=== PATIENT | male | born 1975 | race Caucasian/White ===

== ENCOUNTER 2017-09-16 12:55 | Observation (INO) ==
[2017-09-16 13:31] VITALS: BMI 31.4
[2017-09-16] MEDS ORDERED: TYLENOL PO PRN (13:44)
[2017-09-16] MEDS ORDERED: DECADRON 4 MG/ML SDV IVP STA (13:45)
[2017-09-16] MEDS: ROCEPHIN 1 GM in SODIUM CHLORIDE 50 ML IV SCH (14:21)
[2017-09-16] MEDS: D5%-NS-KCL 20 MEQ/L IV SOL 1,000 ML IV SCH (14:21)
[2017-09-17] MEDS: D5%-NS-KCL 20 MEQ/L IV SOL 1,000 ML IV SCH ×2 (04:08→19:53)
[2017-09-17] MEDS: ROCEPHIN 1 GM in SODIUM CHLORIDE 50 ML IV SCH (09:17)
[2017-09-17] MEDS: ANTIVERT PO SCH ×2 (16:53→20:25)
[2017-09-17] MEDS ORDERED: DECADRON 4 MG/ML SDV IVP STA (17:35)
[2017-09-18] MEDS: ROCEPHIN 1 GM in SODIUM CHLORIDE 50 ML IV SCH (08:12)
[2017-09-18] MEDS: ANTIVERT PO SCH ×2 (09:53→16:16)
[2017-09-18] MEDS: D5%-NS-KCL 20 MEQ/L IV SOL 1,000 ML IV SCH (10:37)
[2017-09-18 13:51] VITALS: BP 123/82; TEMP 98
--- NOTE | 2017-09-18 15:30 | PCM.HOSP ---
- Observation Care Discharge [id number] OBS Care Discharge ([id number]): - Initial Observation Care [id number] High Complexity 70 Minutes (29449): 09/16 - Subsequent Observation Care [id number] 35 Minutes per Day (81649): 09/17
--- NOTE | 2017-09-19 13:51 | DS ---
DATE OF SERVICE: 09/18/17 FINAL DIAGNOSIS: 1. DIZZINESS 2. HEAT EXHAUSTION 3. ACUTE RENAL FAILURE 4. HYPERTENSION 5. DYSLIPIDEMIA 6. OBESITY 7. OSTEOARTHRITIS DISCHARGE INSTRUCTIONS: 1. Discharge the patient home. 2. Followup at the [facility] within three days on Tuesday. No work until seeing Dr. Macias in followup. MEDICATIONS AT DISCHARGE: Edarbi Diclofenac Fenofibrate Potassium Crestor NEW PRESCRIPTIONS: Meclizine 25 mg one tablet every 8 hours until finished Augmentin 500 mg q.8hr Prednisone 10 mg b.i.d. DIET INSTRUCTIONS: Cardiac and Healthy ACTIVITY: As much as tolerated DISEASE SPECIFIC EDUCATION: Dehydration and heat exhaustion has been discussed, verbalized understanding. HOSPITAL COURSE: This is a 42-year-old male who was recently evaluated in the emergency room at [facility] for severe dizziness and syncopal episode, found to have elevated BUN and creatinine, elevated white count of 14,[address] head was negative. They gave him fluids and let him go but the patient continued to feel the same way and was not able to get better. The patient did have some outpatient tests which included CT of the head showing microvascular changes. Carotid ultrasound was negative. As the patient was not feeling well, came to the office, given his age and recent abnormal blood work and continued dizziness, the patient was admitted to the hospital for IV hydration. BUN 24, creatinine 1.76 found to be in acute renal failure. IV fluids were started. On examination the patient also had right ear pain and right tympanic membrane rupture so started on antibiotic Rocephin 1 gm daily and steroids. With the given treatment, he was feeling some better. I added Meclizine 25 mg t.i.d. which helped the patient alot. The patient was up and about walking, started going out and smoking. He did not have any problems. Orthostatic hypotension was negative. As the patient was doing well, no complications during the hospital stay, he was discharged home. TIME SPENT: MORE THAN 65 MINUTES MTDD
--- NOTE | 2017-09-19 13:59 | PN ---
DATE OF SERVICE: 09/17/17 SUBJECTIVE: The patient was recently admitted to [facility] for heat exhaustion and dizziness. The patient was still dizzy, not able to take care of himself. He was started on IV fluids. BUN and creatinine still elevated 24 and 1.79 respectively. Hemoglobin dropped from 17.1 to 12.6. Urine negative. Drug screen negative. REVIEW OF SYSTEMS: CONSTITUTIONAL: No fever, no chills. HEENT: Normal. ENDOCRINE: No weight gain, no weight loss. CVS: No angina symptoms. No CHF symptoms. No palpitations. No atypical chest pain for CAD. No shortness of breath. No PND, no orthopnea. RESPIRATORY: No cough, no hemoptysis. GI: No nausea, no vomiting. No abdominal pain. : No hematuria. No polyuria. MUSCULOSKELETAL: No joint swelling. 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 PSYCHIATRIC: Not anxious. No depression. No suicidal thoughts. No homicidal thoughts. SKIN: Intact. No rash. PHYSICAL EXAMINATION: V/S: BP 109/70, respiratory rate 16, heart rate 84, temperature 97.5, saturation 96. HEENT: Normocephalic, atraumatic. Mucosa dry. Pallor positive. No icterus. NECK: Supple. No JVD, no carotid bruit. No lymphadenopathy. LUNGS: Clear to auscultation. No rales or rhonchi. HEART: S1, S2 normal. No S3. No murmur, gallop or regurgitation. ABDOMEN: Soft, nontender. Bowel sounds active. No rigidity. No rebound or guarding. No CVA tenderness. EXTREMITIES: No cyanosis, clubbing or pedal edema. MUSCULOSKELETAL: No joint swelling. NEUROLOGIC: Awake, alert. The patient does have dizzy spells. LYMPHATIC: No lymph nodes palpable. SKIN: Intact. LABS: White count 10.66, hemoglobin 12.7, hematocrit 37.9, platelet count 230. Sodium 139, potassium 4.1, chloride 106, bicarb 23, BUN 25, creatinine 1.18, glucose 117. ASSESSMENT: 1. STATUS POST HEAT EXHAUSTION 2. ACUTE RENAL FAILURE 3. DIZZINESS 4. ANEMIA PROBABLY FROM HEMODILUTION PLAN: 1. 1 cc Decadron 2. Rocephin 3. Right TM is ruptured so will treat for otitis media also. 4. Meclizine 5. Will continue to monitor the orthostatic hypotension on the patient. TIME SPENT: More than 35 minutes MTDD
== END 2017-09-18 16:32 | disposition home or self-care (01) ==
LOC: MEDSURG B 12:55
PROVIDERS: ADMIT Emergency Medicine; ATTEND Emergency Medicine
DX: R42 Dizziness and giddiness (principal); T67.5XXA Heat exhaustion, unspecified, initial encounter; I10 Essential (primary) hypertension; E78.5 Hyperlipidemia, unspecified; N17.9 Acute kidney failure, unspecified; D64.9 Anemia, unspecified
CPT/HCPCS: 36415; 80053; 80306; 81001; 82550; 84484; 85025; 93005; 93010

== ENCOUNTER 2017-10-04 11:12 | Outpatient (POV) | END 2017-10-04 17:00 | LOC: OUTPT 11:12 | PROVIDERS: ATTEND Otolaryngology | DX: H90.5 Unspecified sensorineural hearing loss (principal) ==

== ENCOUNTER 2017-10-30 10:04 | Emergency (ER) ==
[2017-10-30 10:11] VITALS: BP 135/82; TEMP 98.5; BMI 32.4
--- NOTE | 2017-10-30 10:54 | CT ---
EXAM: CT abdomen pelvis without contrast HISTORY: Rectal bleeding COMPARISON: None TECHNIQUE: Serial axial images of the abdomen pelvis were performed from the lung bases through the inferior pelvis without contrast. These were viewed in multiple planes. FINDINGS: There are innumerable pulmonary nodules in the lower lobes measuring up to 0.[address] The liver is unremarkable. The gallbladder is distended. Adrenal glands are normal. Urinary bladde r and kidneys are normal. The spleen is normal. The pancreas is normal. The stomach is normal. Small bowel in the abdomen pelvis is unremarkable. The appendix is normal. The colon demonstrates l ow attenuation in the mucosal wall that may represent history of prior infection/inflammation. Urina ry bladder is partially distended. The prostate is unremarkable. There is no free air, free fluid or lymphadenopathy. The osseous structures demonstrate no lytic or blastic lesion. IMPRESSION: 1. No acute abnormality in the abdomen pelvis to account for patient's rectal bleeding. 2. Innumerable small pulmonary nodules in the lung bases measuring up to 0.4 cm.
--- NOTE | 2017-10-30 11:11 | ED.PDOC ---
General ED Provider: Dr. ABHI RANDLE-ER Chief Complaint: GI Bleed Stated Complaint: im bleeding--rosaura seen dr haley before Time Seen by Physician: 10:10 Mode of Arrival: Walk-In Information Source: Patient, Family Exam Limitations: No limitations Primary Care Provider: ROSALIND LOPEZ Nursing and Triage Documentation Reviewed and Agree: Yes Does patient meet sepsis criteria?: No System Inflammatory Response Syndrome: Not Applicable Sepsis Protocol: For patient's 13 years and over: Temp is 96.8 and below OR 101 and greater Pulse >90 BPM Resp >20/minute Acutely Altered Mental Status Are patient's symptoms suggestive of a new infection, such as: -Pneumonia -Skin, Soft Tissue -Endocarditis -UTI -Bone, Joint Infection -Implantable Device -Acute Abdominal Infection -Wound Infection -Meningitis -Blood Stream Catheter Infection -Unknown GI Complaint Exam - GI Bleed Complaint/Exam Patient Complains of: Reports: Rectal bleeding Onset/Duration: this am Symptoms Are: Still present Frequency: once Severity: Reports: Bright red blood-rectum Location of Pain: Reports: None Character: Reports: Sharp Aggravating: Reports: None Alleviating: Reports: None Associated Signs and Symptoms: Reports: Weakness Related History: Reports: Similar episode GI Bleed Risk Factors: Reports: None Recent Colonoscopy: No Recent EGD: No Abdominal Findings: Present: None Differential Diagnoses: Hemorrhoids, Ulcerative Colitis Review of Systems - Review Of Systems Constitutional: Reports: No symptoms Eyes: Reports: No symptoms Ears, Nose, Mouth, Throat: Reports: No symptoms Respiratory: Reports: No symptoms Cardiac: Reports: No symptoms GI: Reports: No symptoms : Reports: No symptoms Musculoskeletal: Reports: No symptoms, Muscle pain Skin: Reports: No symptoms Neurological: Reports: No symptoms Endocrine: Reports: No symptoms Hematologic/Lymphatic: Reports: No symptoms All Other Systems: Reviewed and Negative Past Medical History - Past Medical History Previously Healthy: No Endocrine: Reports: Unknown Cardiovascular: Reports: Unknown Respiratory: Reports: Unknown Hematological: Reports: Unknown Gastrointestinal: Reports: Unknown Genitourinary: Reports: Unknown Neuro/Psych: Reports: Unknown Musculoskeletal: Reports: Unknown Cancer: Reports: Unknown - Surgical History General Surgical History: Reports: Unknown - Family History Family History: Reports: Unknown - Social History Smoking Status: Current every day smoker, Heavy tobacco smoker Alcohol Screening: Occasionally Physical Exam - Physical Exam Appearance: Well-appearing, No pain distress, Well-nourished Eyes: ALEIDA, EOMI, Conjunctiva clear ENT: Ears normal, Nose normal, Oropharynx normal Neck: Supple Respiratory: Airway patent, Breath sounds clear, Breath sounds equal, Respirations nonlabored Cardiovascular: RRR, Pulses normal, No rub, No murmur GI/: Soft, Nontender, No masses, Bowel sounds normal, No Organomegaly Musculoskeletal: Normal strength Skin: Warm, Dry, Normal color Neurological: Sensation intact, Motor intact, Reflexes intact, Cranial nerves intact, Alert, Oriented Psychiatric: Affect appropriate, Mood appropriate Interpretation - Radiology Interpretation Radiology Interpretation By: Radiologist Radiology Results: Negative Exam Interpreted: CT Scan Critical Care Note - Critical Care Note Total Time (mins): 0 Course - Course Hematology/Chemistry: 10/30/17 10:30 10/30/17 10:30 Orders, Labs, Meds: Lab Review 10/30/17 10/30/17 10/30/17 10:30 10:30 10:30 WBC 5.12 RBC 4.06 L Hgb 12.5 L Hct 37.7 L MCV 92.9 MCH 30.8 MCHC 33.2 RDW Coeff of Jaime 12.1 Plt Count 220 Immature Gran % (Auto) 0.8 Neut % (Auto) 63.6 Lymph % (Auto) 21.9 Wayne % (Auto) 7.6 Eos % (Auto) 5.1 Baso % (Auto) 1.0 Immature Gran # (Auto) 0.0 Neut # (Auto) 3.3 Lymph # (Auto) 1.1 Wayne # (Auto) 0.4 Eos # (Auto) 0.3 Baso # (Auto) 0.1 PT 11.0 INR 1.10 Sodium 138 Potassium 4.3 Chloride 107 Carbon Dioxide 21 L Anion Gap 14.3 BUN 28 H Creatinine 1.42 H Estimated GFR (MDRD) 55.00 BUN/Creatinine Ratio 19.71 Glucose 134 H Calcium 9.8 Total Bilirubin 0.3 AST 32 ALT 34 Alkaline Phosphatase 39 Total Protein 7.7 Albumin 4.4 Globulin 3.3 Albumin/Globulin Ratio 1.33 Orders Category Date Time Status CBC W/ AUTO DIFF Stat LAB 10/30/17 10:30 Completed COMPREHENSIVE METABOLIC PANEL Stat LAB 10/30/17 10:30 Completed PT WITH INR Stat LAB 10/30/17 10:[address] ABDOMEN/PELVIS WO CONTRAST Stat RADS 10/30/17 10:22 Completed Vital Signs: Temp Pulse Resp BP Pulse Ox 10/30/17 10:05 98.5 F 92 H 20 135/82 96 Departure - Departure Time of Disposition: 11:12 Disposition: TSF SHORT-TRM HOSP Discharge Problem: Gastrointestinal hemorrhage Instructions: Rectal Bleeding (ED) Condition: Good Pt referred to PMD for follow-up: Yes IPMP verified?: No Allergies/Adverse Reactions: Allergies No Known Allergies Allergy (Verified 10/30/17 10:13) Home Medications: Ambulatory Orders Azilsartan Medoxomil [Edarbi] 40 mg PO DAILY 09/16/17 Diclofenac Sodium 75 mg PO BID 09/16/17 Fenofibrate Nanocrystallized [Fenofibrate] 145 mg PO DAILY 09/16/17 Potassium 99 mg PO DAILY 09/16/17 Rosuvastatin Calcium [Crestor] 20 mg PO DAILY 09/16/17 Prednisone 10 mg PO BIDWM #10 tab.ds.pk 09/18/17 Nortriptyline HCl 25 mg PO BEDTIME 10/06/17 Hydroxychloroquine Sulfate [Plaquenil] 400 mg PO DAILY 10/30/17 Sildenafil Citrate [Viagra] 100 mg PO DAILY 10/30/17 Transfer Form Completed: Yes Disposition Discussed With: Patient, Family
[2017-10-30] MEDS ORDERED: SODIUM CHLORIDE 1,000 ML IV STA (11:15)
== END 2017-10-30 12:54 | disposition short-term general hospital (02) ==
LOC: ED 10:04
DX: K92.1 Melena (principal); F17.210 Nicotine dependence, cigarettes, uncomplicated; Z79.899 Other long term (current) drug therapy
CPT/HCPCS: 36415; 80053; 85025; 85610; 96360; 99285

== ENCOUNTER 2017-12-27 13:50 | Outpatient (CLI) | END 2017-12-27 13:51 | disposition home or self-care (01) | LOC: LAB 13:50 | PROVIDERS: ATTEND Internal Medicine Rheumatology | DX: M06.4 Inflammatory polyarthropathy (principal); R53.83 Other fatigue | CPT/HCPCS: 36415; 80053; 80074; 85025; 85651; 86140; 86200 ==

== ENCOUNTER 2018-04-01 11:44 | Emergency (ER) ==
[2018-04-01 11:53] VITALS: BP 121/81; TEMP 99.3; BMI 31.2
--- NOTE | 2018-04-01 12:27 | ED.PDOC ---
General ED Provider: Dr. ABHI BERNARDO Chief Complaint: Respiratory Complaint Stated Complaint: CC: Cough and congestion. Has Coughing and congestion which has not regressed despite taking Zithromax. Actually feels worse. Saw providere at clinic 3 days and Tested negative for flu at office .Chest hurts to cough, body aches. Has Fever. Cough productive white to yellow sputum. Nasal congestion. Negative for flu. Given Z-pack 03/30. Not helping. Has been taking ibuprofen 6 times per day. No tylenol taken. State normally gets befefit from [facility]. Time Seen by Physician: 11:55 Mode of Arrival: Walk-In Information Source: Patient Exam Limitations: No limitations Primary Care Provider: BROOKE MOODY Nursing and Triage Documentation Reviewed and Agree: Yes Does patient meet sepsis criteria?: No If yes, has appropriate treatment been initiated?: No System Inflammatory Response Syndrome: Not Applicable Sepsis Protocol: For patient's 13 years and over: Temp is 96.8 and below OR 101 and greater Pulse >90 BPM Resp >20/minute Acutely Altered Mental Status Are patient's symptoms suggestive of a new infection, such as: -Pneumonia -Skin, Soft Tissue -Endocarditis -UTI -Bone, Joint Infection -Implantable Device -Acute Abdominal Infection -Wound Infection -Meningitis -Blood Stream Catheter Infection -Unknown Respiratory Complaint Exam - Respiratory Complaint/Exam Onset/Duration: 1 weeks Symptoms Are: Still present Timing: Constant Initial Severity: Moderate Current Severity: Moderate Location: Nose, Throat, Chest Character: Reports: Productive cough, Bronchospastic cough Aggravating: Reports: URI, Passive smoke exposure, Deep breaths Alleviating: Reports: None Associated Signs and Symptoms: Reports: URI, Nasal congestion. Denies: Rapid breathing, Dyspnea, Fever, Chills, Chest pain, Pleuritic chest pain, Wheezing, Hemoptysis, Dizziness, Calf pain, Calf swelling, Edema, Hoarseness, Sinus discomfort, Vomiting, Sore throat, Weight loss, Decreased oral intake, Increased thirst, Increased appetite, Increased urination Related History: Reports: Similar episode History of Healthcare-Acquired Pneumonia: No Related Surgical History: Reports: None Pulmonary Embolism Risk Factors: None Cardiac Risk Factors: Reports: None Pseudomonas Risk Factors: Reports: None Tuberculosis Risk Factors: Reports: None Status Asthmaticus Risk Factors: Reports: None Home Oxygen Use: No Recent Stress Test: Yes Recent Echo/LV Function: No Current Antibiotic Use: No Respiratory Distress: None Inadequate Respiratory Effort: No Dysphagia Present: No Stridor Present: No JVD Present: No Retractions: Not Present Diminished Breath Sounds: Yes Sinus Tenderness: Frontal, Maxillary Grunting Respirations: No Kussmaul Respirations: No Differential Diagnoses: COPD Exacerbation, Bronchospasm, URI Quality Indicators For Pneumonia: SpO2 assessed, Empiric Antibiotic Rx, Vital signs, Mental status assessed Review of Systems - Review Of Systems Constitutional: Reports: No symptoms, Malaise Eyes: Reports: No symptoms Ears, Nose, Mouth, Throat: Reports: No symptoms Respiratory: Reports: Cough Cardiac: Reports: No symptoms GI: Reports: No symptoms : Reports: No symptoms Musculoskeletal: Reports: No symptoms Skin: Reports: No symptoms Neurological: Reports: No symptoms Endocrine: Reports: No symptoms Hematologic/Lymphatic: Reports: No symptoms All Other Systems: Reviewed and Negative Past Medical History - Past Medical History Previously Healthy: No Endocrine: Reports: Unknown Cardiovascular: Reports: Unknown Respiratory: Reports: Unknown Hematological: Reports: Unknown Gastrointestinal: Reports: Unknown Genitourinary: Reports: Unknown Neuro/Psych: Reports: Unknown Musculoskeletal: Reports: Unknown Cancer: Reports: Unknown - Surgical History General Surgical History: Reports: Unknown - Family History Family History: Reports: Unknown - Social History Smoking Status: Current every day smoker, Heavy tobacco smoker Hx Substance Use: No Alcohol Screening: Occasionally Physical Exam - Physical Exam Appearance: Ill-appearing Ill-appearing: None Pain Distress: None Eyes: ALEIDA, EOMI, Conjunctiva clear ENT: Ears normal, Nose normal, Oropharynx normal Neck: Supple Respiratory: Airway patent, Breath sounds clear, Breath sounds equal, Respirations nonlabored Cardiovascular: RRR, Pulses normal, No rub, No murmur GI/: Soft Musculoskeletal: Normal strength, ROM intact, No edema, No calf tenderness Skin: Warm, Dry, Normal color Neurological: Sensation intact, Motor intact, Reflexes intact, Cranial nerves intact, Alert, Oriented Psychiatric: Affect appropriate, Mood appropriate Critical Care Note - Critical Care Note Total Time (mins): 0 Course - Course Hematology/Chemistry: 04/01/18 12:30 04/01/18 12:30 Orders, Labs, Meds: Lab Review 04/01/18 04/01/18 04/01/18 12:30 12:30 12:40 WBC 4.56 RBC 4.59 L Hgb 14.1 Hct 42.5 MCV 92.6 MCH 30.7 MCHC 33.2 RDW Coeff of Jaime 12.3 Plt Count 198 Immature Gran % (Auto) 0.2 Neut % (Auto) 65.5 Lymph % (Auto) 15.8 [place] % (Auto) 14.3 H Eos % (Auto) 3.3 Baso % (Auto) 0.9 Immature Gran # (Auto) 0.0 Neut # (Auto) 3.0 Lymph # (Auto) 0.7 [place] # (Auto) 0.7 Eos # (Auto) 0.2 Baso # (Auto) 0.0 Sodium 141.3 Potassium 4.16 Chloride 107.3 H Carbon Dioxide 24.1 Anion Gap 14.06 BUN 18.5 Creatinine 1.13 H Estimated GFR (MDRD) 71.00 BUN/Creatinine Ratio 16.37 Glucose 90.3 Calcium 9.35 Total Bilirubin 0.25 AST 30.8 ALT 38.7 Alkaline Phosphatase 43.5 Total Protein 7.38 Albumin 4.33 Globulin 3.05 Albumin/Globulin Ratio 1.41 Urine Color Urine Clarity Urine pH Ur Specific [place] Urine Protein Urine Glucose (UA) Urine Ketones Urine Blood Urine Nitrite Urine Bilirubin Urine Urobilinogen Ur Leukocyte Esterase Urine Opiates Screen Ur Oxycodone Screen Urine Methadone Screen Ur Propoxyphene Screen Ur Barbiturates Screen U Tricyclic Antidepress Ur Phencyclidine Scrn Ur Amphetamine Screen U Methamphetamines Scrn U Benzodiazepines Scrn Urine Cocaine Screen U Cannabinoids Screen Influ A Molecular Assay Negative by naat Influ B Molecular Assay Negative by naat RSV Antigen 04/01/18 04/01/18 04/01/18 12:40 13:28 13:28 WBC RBC Hgb Hct MCV MCH MCHC RDW Coeff of Jaime Plt Count Immature Gran % (Auto) Neut % (Auto) Lymph % (Auto) [place] % (Auto) Eos % (Auto) Baso % (Auto) Immature Gran # (Auto) Neut # (Auto) Lymph # (Auto) [place] # (Auto) Eos # (Auto) Baso # (Auto) Sodium Potassium Chloride Carbon Dioxide Anion Gap BUN Creatinine Estimated GFR (MDRD) BUN/Creatinine Ratio Glucose Calcium Total Bilirubin AST ALT Alkaline Phosphatase Total Protein Albumin Globulin Albumin/Globulin Ratio Urine Color Yellow Urine Clarity Clear Urine pH 6.5 Ur Specific [place] >=1.030 Urine Protein Negative Urine Glucose (UA) Negative Urine Ketones Negative Urine Blood Negative Urine Nitrite Negative Urine Bilirubin Negative Urine Urobilinogen 0.2 Ur Leukocyte Esterase Negative Urine Opiates Screen Negative Ur Oxycodone Screen Negative Urine Methadone Screen Negative Ur Propoxyphene Screen Negative Ur Barbiturates Screen Negative U Tricyclic Antidepress Positive Ur Phencyclidine Scrn Negative Ur Amphetamine Screen Negative U Methamphetamines Scrn Negative U Benzodiazepines Scrn Negative Urine Cocaine Screen Negative U Cannabinoids Screen Negative Influ A Molecular Assay Influ B Molecular Assay RSV Antigen Negative by naat Orders Category Date Time Status CBC W/ AUTO DIFF Stat LAB 04/01/18 12:30 Completed CMP [COMPREHENSIVE METABOLIC PANEL] Stat LAB 04/01/18 12:30 Completed FLU A & B MOLECULAR [FLU A/B MOLECULAR] Stat LAB 04/01/18 12:40 Completed RAPID STREP SCREEN [MOLECULAR GROUP A STREP] Stat LAB 04/01/18 12:40 Completed RSV Stat LAB 04/01/18 12:40 Completed SPUTUM CULTURE Stat LAB 04/01/18 13:09 Received UA [URINALYSIS C & S IF INDICATED] Stat LAB 04/01/18 13:28 Completed URINE DRUG SCREEN (RAPID FOR ED) [DRUG SCREEN, URINE, LAB 04/01/18 13:28 Completed RAPID] Stat CHEST, 2 VIEWS PA & LAT Stat RADS 04/01/18 12:26 Completed Vital Signs: Temp Pulse Resp BP Pulse Ox 04/01/18 11:44 99.3 F 121 H 20 121/81 92 L Departure - Departure Time of Disposition: 14:00 Disposition: HOME SELF-CARE Discharge Problem: URI (upper respiratory infection) Instructions: Upper Respiratory Infection (ED) Condition: Good Pt referred to PMD for follow-up: Yes IPMP verified?: No Additional Instructions: Consume adequate oral fluids Take meds as directed See PCP in 1 week Take Robitussin DM for coughing as needed, Finish taking zithromax Begin Augumentin and Medrol Dose Pack Prescriptions: Amoxicillin/Potassium Clav [Augmentin 875-125 Tablet] 1 each PO BID #20 tablet Methylprednisolone [Medrol Dosepak] 4 mg PO DIRECTED #1 tab.ds.pk Allergies/Adverse Reactions: Allergies No Known Allergies Allergy (Verified 04/01/18 11:53) Home Medications: Ambulatory Orders Diclofenac Sodium 75 mg PO BID 09/16/17 Fenofibrate Nanocrystallized [Fenofibrate] 145 mg PO DAILY 09/16/17 Potassium 99 mg PO DAILY 09/16/17 Rosuvastatin Calcium [Crestor] 20 mg PO DAILY 09/16/17 Nortriptyline HCl 25 mg PO BEDTIME 10/06/17 Hydroxychloroquine Sulfate [Plaquenil] 400 mg PO DAILY 10/30/17 Lansoprazole [Prevacid] 30 mg PO DAILY 11/09/17 Amoxicillin/Potassium Clav [Augmentin 875-125 Tablet] 1 each PO BID #20 tablet 04/01/18 Methylprednisolone [Medrol Dosepak] 4 mg PO DIRECTED #1 tab.ds.pk 04/01/18 Disposition Discussed With: Patient, Family
--- NOTE | 2018-04-01 13:50 | DI ---
EXAM: PA and lateral views of the chest HISTORY: Cough and congestion COMPARISON: CT chest 01/24/2018 FINDINGS: The cardiomediastinal silhouette is normal. There is no pneumothorax or pleural effusion. There is no consolidation or mass. Bilateral innumerable pulmonary nodules are unchanged. The oss eous structures are unremarkable. IMPRESSION: No acute cardiopulmonary process with innumerable stable pulmonary nodules.
== END 2018-04-01 14:28 | disposition home or self-care (01) ==
LOC: ED 11:44
DX: J06.9 Acute upper respiratory infection, unspecified (principal); F17.210 Nicotine dependence, cigarettes, uncomplicated
CPT/HCPCS: 36415; 80053; 80306; 81001; 85025; 87070; 87502; 87651; 87801; 99283

== ENCOUNTER 2018-04-05 09:56 | Outpatient (CLI) ==
--- NOTE | 2018-04-05 10:19 | DI ---
EXAM: Two views of the chest. History: Chronic obstructive pulmonary disease Comparison: Chest radiograph 04/01/2018, chest CT 01/24/2018 Findings: Heart size is within normal limits. No focal consolidation. No appreciable pleural fluid and no pneumothorax. No significant interval change in the innumerable sub-centimeter bilateral surendra g nodules. No acute osseous abnormalities. Impression: 1. No consolidated pneumonia. 2. No significant interval change in the innumerable bilateral pulmonary nodules.
== END 2018-04-05 09:57 | disposition home or self-care (01) ==
LOC: RAD 09:56
PROVIDERS: ATTEND Internal Medicine
DX: R06.02 Shortness of breath (principal); I10 Essential (primary) hypertension; J44.9 Chronic obstructive pulmonary disease, unspecified

== ENCOUNTER 2018-04-12 12:39 | Outpatient (CLI) | END 2018-04-12 12:40 | disposition home or self-care (01) | LOC: CAR 12:39 | PROVIDERS: ATTEND Internal Medicine | DX: R06.02 Shortness of breath (principal); J44.9 Chronic obstructive pulmonary disease, unspecified; I10 Essential (primary) hypertension; R00.0 Tachycardia, unspecified; E78.5 Hyperlipidemia, unspecified; Z87.19 Personal history of other diseases of the digestive system | CPT/HCPCS: 36415; 80053; 80061; 85025; 93005; 93010 ==

== ENCOUNTER 2018-04-14 06:36 | Outpatient (CLI) ==
--- NOTE | 2018-04-14 10:09 | ECHO2D ---
Date of Exam: 04/14/18 Ordering Physician: DR. JESSICA CHAVARRIA Room #: OP Reason for Echo: SOB, HTN, COPD M-Mode Normal Adult Results LV Dimensions Normal Adult Results AoV Opening excursions >1.6 >1.6 LVEDD-base- 3.5-5.8 5.3 Ao root dimensions 2.0-3.7 3.5 LVESD-base- 3.1-4.6 L. Atrium dimensions 1.9-3.8 4.1 Post. Wall thickness 0.8-1.1 1.1 IV septum (thickness) 0.7-1.2 1.1 Post. Wall excursion 0.72-1.3 NORMAL Septal motion 0.7 Systolic motion R. Ventricular cavity 1.5-2.0 NORMAL LVEF 60% 45% Paradoxical septal wall motion NORMAL 2-D : MILDLY HYPOKINETIC SEPTUM--NORMAL VALVES--NO EFFUSION, NO THROMBUS, MILDLY ENLARGED LEFT ATRIAL CAVITY, NORMAL LEFT VENTRICLE SIZE M-MODE: MV: NORMAL AV: NORMAL TV: NORMAL PV: CHAMBER SIZE: MILDLY ENLARGED LEFT ATRIAL CAVITY SIZE WALL MOTION: NORMAL PERICARDIUM: NORMAL INTERPRETATION: 1. BORDERLINE LEFT VENTRICULAR HYPERTROPHY 2. MILDLY ENLARGED LEFT ATRIAL CAVITY 3. MILDLY HYPOKINETIC SEPTUM--LEFT VENTRICULAR EJECTION FRACTION 45% 4. NORMAL VALVES MTDD
== END 2018-04-14 06:37 | disposition home or self-care (01) ==
LOC: CAR 06:36
PROVIDERS: ATTEND Internal Medicine
DX: R06.02 Shortness of breath (principal); I10 Essential (primary) hypertension; J44.9 Chronic obstructive pulmonary disease, unspecified

== ENCOUNTER 2018-04-17 06:41 | Outpatient (CLI) ==
--- NOTE | 2018-04-17 09:41 | STRESSECHO ---
Date of Test: 04/17/18 Ordering Physician: DR. JESSICA CHAVARRIA/BROOKE MOODY NP Occupation: UNEMPLOYED Reason for Exam: SOB, HTN, COPD Smoking History: 30 PK YRS Height: 71" Weight: 225 LBS Current Medications: DICLOFENAC, FENOFIBRATE, FLUTICASONE, HYDROXYCHLOROQUINE, LANSOPRAZOLE, LISINOPRIL, NORTRIPTYLINE, ROSUVASTATIN, SULFASALAZINE, SYMBICORT , VENTOLIN, VIAGRA, COREG, LOSARTAN Resting EKG: SINUS RHYTHM/ LEFT VENTRICULAR HYPERTROPHY Target Heart Rate: 150/177 S-T SEGMENT STAGE MPH/GRADE HEART RATE BPM BLOOD PRESSURE MMHG RHYTHM +/- ELEVATION DEPRESSION SYMPTOMS AT REST 75 BPM 120/90 MMHG SR X NONE 1 1.7/10% 120 BPM 136/70 MMHG SR X NONE 2 2.5/12% 132 BPM 134/72 MMHG SR X NONE 3 3.4/14% 4 4.2/16% 5 5.0/18% Immediately After 142 BPM SR X NONE Minutes Post Exercise 4:00 88 BPM 126/88 MMHG SR X SHORT OF AIR Minutes Post Exercise DURATION OF EXERCISE: 6:40 MAXIMUM HEART RATE REACHED: 146 BPM REASON FOR TERMINATION: SHORT OF AIR 98% OXYGEN SATURATION ON ROOM AIR WITH EXERCISE METS: 9.0 INTERPRETATION: 1. NO EVIDENCE OF ISCHEMIA BY ST-T WAVE 2. NO CHEST PAIN OR CHEST DISCOMFORT 3. BLOOD PRESSURE RESPONSE: NORMAL AT REST AND WITH EXERCISE 4. NO ARRHYTHMIAS NORMAL LEFT VENTRICULAR CONTRACTILITY--RESTING AND POST EXERCISE MTDD
--- NOTE | 2018-04-17 09:46 | ECHOSTRESS ---
Date of Exam: 04/17/18 Ordering Physician: DR. JESSICA CHAVARRIA/ BROOKE MOODY NP Reason for Echo: SOB, HTN, COPD, STRESS TEST--NO ISCHEMIA M-Mode Normal Adult Results LV Dimensions Normal Adult Results AoV Opening excursions >1.6 LVEDD-base- 3.5-5.8 Ao root dimensions 2.0-3.7 LVESD-base- 3.1-4.6 L. Atrium dimensions 1.9-3.8 Post. Wall thickness 0.8-1.1 IV septum (thickness) 0.7-1.2 Post. Wall excursion 0.72-1.3 Septal motion Systolic motion R. Ventricular cavity 1.5-2.0 LVEF 60% Paradoxical septal wall motion 2-D: NORMAL LEFT VENTRICULAR CONTRACTILITY--RESTING AND POST EXERCISE M-MODE: MV: AV: TV: PV: CHAMBER SIZE: WALL MOTION: NORMAL LEFT VENTRICULAR CONTRACTILITY--RESTING AND POST EXERCISE PERICARDIUM: INTERPRETATION: 1. NORMAL LEFT VENTRICULAR CONTRACTILITY--RESTING AND POST EXERCISE MTDD
== END 2018-04-17 06:42 | disposition home or self-care (01) ==
LOC: CAR 06:41
PROVIDERS: ATTEND Internal Medicine
DX: R06.02 Shortness of breath (principal); I10 Essential (primary) hypertension; J44.9 Chronic obstructive pulmonary disease, unspecified

== ENCOUNTER 2018-05-31 07:53 | Outpatient (CLI) ==
--- NOTE | 2018-05-31 12:34 | NM ---
Exam: Bone scintigraphy (whole-body). Date of exam: 05/31/2018 Radiopharmaceutical: 25.5 mCi Tc-99m HDP i.v. Reason for exam: Joint and low back pain. Worsened right hip FINDINGS: Delayed whole-body scintigrams were obtained. No previous bone scan is available for josé cartwright. The scintigraphic images were correlated with the following additional imaging studies: CT of the [facility] performed 01/24/2018. CT abdomen pelvis performed 10/30/2017. X-ray right hip performed 03/20/19 19. Focal area of increased uptake is seen in the right posterior ninth rib. There are focal areas of de generative appearing uptake in the the left and right shoulders, sternoclavicular joints, left head mechanic ior cervical facets, and left knee. Impression: 1. Focal radiopharmaceutical uptake in the right posterior ninth rib is likely traumatic. If clinic al concern exists, further imaging could be performed. 2. Radiopharmaceutical uptake is seen in the shoulders, cervical spine, left knee, and sternoclavicu lar joints likely degenerative.
== END 2018-05-31 07:54 | disposition home or self-care (01) ==
LOC: RAD 07:53
PROVIDERS: ATTEND Orthopaedic Surgery
DX: M25.551 Pain in right hip (principal); M54.5 Low back pain

== ENCOUNTER 2018-06-19 08:00 | Outpatient (RCR) ==
--- NOTE | 2018-06-13 12:03 | RS.OPPTEV2 ---
Date of Note: 06/12/18 Visit #: 1 Number of visits approved by Insurance: pending Date of Evaluation: 06/12/18 Payer Source: Medicaid Date of Procedure: 06/12/18 Treatment Diagnosis: Low back and bilateral hip pain History of Condition/Mechanism of Injury:: Patient states he has had problems for years. Pain began to significantly increased last summer without any known reason or injury. 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 He has been unable to work since August 2017. States he has not had therapy on his back and he has not been to Pain Management. Prior Level of Function.....Patient was independent with: ADL's, Self Care, Caregiving, Ambulation/Mobility, Community Integration/Access Functional Limitations: Sleep, ADL's, Reaching, Pushing, Pulling, Lifting, Carrying, Sitting, Standing, Bending, Squatting, Ambulation, Community Access/ Integration Current Subjective/complaints:: Mr. Mejía reports currently more low back pain and right hip pain. He frequently gets pain down to the foot on the right LE. States he gets tingling in his hands, but denies any tingling or numbness in the LE's. Also denies weakness in the LE's. Reports he cannot tolerate prolonged standing and walking. States he has moved his wallet to the left pocket, because it hurt more when sitting with it in the right pocket. His has had surgery and he is having to do more around the house, but it is difficult for him due to his pain. States he has to change positions frequently. His sleep is very difficult due to having to change positions. States the Vicoprofen does not help much and he feels that he needs something stronger. States he did not take anything this morning so we could see how his pain is. Medical History Medical History: Hypertension, COPD, Arthritis (knees, hips, shoulders, hands) Surgical History Comments:: shoulder, knee, eye surgery Hx Home Medications: Vicoprofen Patient's Goals: His goal is to get some relief of low back and hip pain. Pain Assessment - Pain Description Pain Location: low back and right hip Current Pain Intensity: not quantified Worst Pain Intensity: not quantified Functional Outcome Measure Oswestry LBP: 84 LE Functional Scale: 17 (=78.75% impairment) - G Codes & Severity Modifier G Codes & Modifier: NA Source of G Code score: NA Observation - Observation Inspection: Patient presents sitting in chair with weight on his left buttock and right hip shifted forward with right LE extended. He changes to his right hip for a short time and then back to his left. Posture: Forward Head, Decreased Lumbar Lordosis Gait - Gait Pattern Gait Comments: Patient ambulates without an assistive device. Ambulates with slight forward posture with slow, cautious gait. Ambulates with decreased stance on the right LE. - ROM Lumbar Flexion: Hand reach to patellae Sidebending to Left: Reach to Lateral Joint Line Sidebending to Right: Reach to Mid-thigh Lumbar Spine ROM Limitations: Pain Comments: Patient reports increased pain into the right lumbosacral and buttock region with lumbar flexion, extension, and right sidebending. States left sidebending actually seems to relieve it some. In supine, lower trunk rotation to his left feels better than to his right. Bilateral hip pain beyond 85-90 degrees flexion causes increased right hip/low back pain. Reports increased pain with combined right hip flexion and adduction. - Strength Trunk Rotation: 4 Good Comments: Right hip strength 4/5 with reports of pain with MMT of flexion and abduction. Right knee 4+/5, with significant increased pain reported when etta the right HS. Right ankle 4+/5. Left LE generally 4+/5 throughout. - Special Tests OMAR Test: Negative Left SLR Test: Negative Left, Positive Right Seated Dural Stretch Test: Negative Left, Positive Right SI Joint Compression: Negative Comments: Does not tolerate the ROM in the right hip to perform OMAR. Palpation Comments:: Moderate muscle tone along the lumbar paraspinals. Denies tenderness to the lumbar paraspinals or with Central PA's to the lumbar vertebrae. Does reports mild tenderness with palpation around the Right SI joint and superior to middle buttock region. Denies pain with anterior force to the sacrum. Sensation - Sensation Right Lower Extremity: Intact/Normal Left Lower Extremity: Intact/Normal Additional Comments: Additional Comments: Supine SLR: left 35-40 degrees, right with pain and guarding at 30 degrees. Left LE appears shorter in supine, but patient does not assist with laying in straight alignment to determine leg length discrepancy. Interventions - Exercise/Activities/Manual Therapy Exercises/Activities: None given today Manual Therapy: NA - Charges Timed Code Treatment Minutes: 0 mins Total Treatment Time: 48 mins Procedures billed for this date of service:: EVAL medium EVALUATION COMPLEXITY LEVEL EVALUATION COMPLEXITY LEVEL: HISTORY: Medium (Hx of back pain), EXAM OF BODY SYSTEMS: Medium (ROM, MS, mobility, gait,palpation,sensation), CLINICAL PRESENTATION: Medium (high pain rating, low functional rating), CLINICAL DECISION MAKING: Medium Assessment Assessment: Patient presents to therapy with a diagnosis of bilateral hip and low back pain. He reports pain is more in the right hip. States he cannot tolerate any position for too long due to pain. States he has to frequently change positions to try to get comfortable. During evaluation, all lumbar AROM reproduces pain, except for left SB and left lower trunk rotation , which relieves a little. He exhibits a high pain profile and Special tests may not be valid due to pain with most movements or positions. He may benefit from therapy to reduce pain and improve his mobility. Patient Education: Education of diagnosis, Body/Joint mechanics, Education of Plan of Care Rehab Potential: Good Short Term Goals Goal #1: Patient independent and compliant with HEP. Goal to be met by: 06/27/18 Goal #2: Patient able to tolerate 15 mins of exercises in department. Goal to be met by: 06/27/18 Goal #3: Muscle tone in lumbar paraspinals decreased to minimal Goal to be met by: 06/27/18 Goal #4: Pt to maintain normal resting sitting posture for 10 mins in department. Goal to be met by: 06/27/18 [facility] Goals Goal #1: Pt knows HEP and to continue ex's to maintain functional level at D/C. Goal to be met by: 07/28/18 Goal #2: Score on Oswestry LBP scale improved to 54. Goal to be met by: 07/28/18 Goal #3: Pt able to amb. community distances with min. back pain & min. gt dev. Goal to be met by: 07/28/18 Goal #4: Lumbar AROM WFL's to perform ADL's with minimal to no difficulty. Goal to be met by: 07/28/18 Plan - Treatment to be Provided Procedures: Therapeutic Exercises, Therapeutic Activity, Manual Therapy, Patient Education Modalities: Electrical Stimulation, Ultrasound/Phonophoresis, Cryotherapy, Hot Packs Other:: Modalities to help him tolerate stretching/ROM. - Treatment Plan Frequency: 2-3 X week Duration: 6 weeks Dates of [facility] Goals: 07/28/18 Expiration date of current Insurance Approval:: pending - Treatment Code (1) Low back pain Code(s): M54.5 - LOW BACK PAIN Qualifiers: Chronicity: unspecified Back pain laterality: unspecified Sciatica presence: unspecified whether sciatica present Qualified Code(s): M54.5 - Low back pain (2) Hip pain Code(s): M25.559 - PAIN IN UNSPECIFIED HIP Qualifiers: Laterality: right Qualified Code(s): M25.551 - Pain in right hip (3) Gait abnormality Code(s): R26.9 - UNSPECIFIED ABNORMALITIES OF GAIT AND MOBILITY Comments: R26.9
--- NOTE | 2018-06-19 09:11 | RS.OPPTDN ---
Subjective Date of Note: 06/19/18 Visit #: 2 Number of visits approved by Insurance: pending Date of Evaluation: 06/12/18 Payer Source: Medicaid Treatment Diagnosis: Low back and bilateral hip pain Current Subjective/complaints:: Patient reports the back and R hip pain is constant the past few days,and the intensity stays about the same. Pain Assessment - Pain Description Pain Location: lumbar /R hip Pain Description: Radiating, Dull, Aching, Chronic Current Pain Intensity: 6-7/10 - Treatment Modality: Electrical Stim Unattended Parameters/Method Applied: 20 mis. high volt ,channel 1 @ 105 pv,channel 2 @ 145 pv. Patient Position: Left Sidelying - Heat/Cryotherapy Treatment: Hot Pack (concurrent with e-stim) Interventions - Exercise/Activities/Manual Therapy Exercises/Activities: 20 mins. total,beginning with pelvic tilts.SKTC in short ROM,hams.stretch,lower trunk rotation.Recommended to do 2-3 x/day as tolerated. Total minutes of Exercise: 20 Manual Therapy: NA Total minutes of Manual Therapy: 0 HOME EXERCISE PROGRAM: pelvic tilts,SKTC,hamstring stretches,lower trunk rotation. - Charges Timed Code Treatment Minutes: 20 Total Treatment Time: 40 Procedures billed for this date of service:: hp,e-stim,ex 1 Assessment: Abbreviated exercise session due to patient muscle guards with every attempted motion ,except doing the pelvic tilts.We discussed to begin the exercises as tolerated .He can benefit from piriformis stretches ,but not attempted today ,due to reporting elevated pain with hip flexion @ 85 to 90 degrees. Patient Education: Education of diagnosis, Body/Joint mechanics, Home Exercise Program, Home Safety, Activity Modification, Education of Plan of Care Patient demonstrates compliance with HEP?: Yes Short Term Goals Goal #1: Patient independent and compliant with HEP. Goal to be met by: 06/27/18 Goal #2: Patient able to tolerate 15 mins of exercises in department. Goal to be met by: 06/27/18 Goal #3: Muscle tone in lumbar paraspinals decreased to minimal Goal to be met by: 06/27/18 Goal #4: Pt to maintain normal resting sitting posture for 10 mins in department. Goal to be met by: 06/27/18 [employer] Goals Goal #1: Pt knows HEP and to continue ex's to maintain functional level at D/C. Goal to be met by: 07/28/18 Goal #2: Score on Oswestry LBP scale improved to 54. Goal to be met by: 07/28/18 Goal #3: Pt able to amb. community distances with min. back pain & min. gt dev. Goal to be met by: 07/28/18 Goal #4: Lumbar AROM WFL's to perform ADL's with minimal to no difficulty. Goal to be met by: 07/28/18 Plan Dates of Correction Goals: 07/28/18 Expiration date of current Insurance Approval:: pending PLAN: Cont. skilled PT to reduce /eliminate LBP.
== END 2018-06-20 23:59 ==
PROVIDERS: ATTEND Orthopaedic Surgery
DX: M25.552 Pain in left hip (principal); M25.551 Pain in right hip; M54.5 Low back pain

== ENCOUNTER 2018-06-27 08:00 | Outpatient (RCR) ==
--- NOTE | 2018-06-22 09:20 | RS.OPPTDN ---
Subjective Date of Note: 06/22/18 Visit #: 3 Number of visits approved by Insurance: pending Date of Evaluation: 06/12/18 Payer Source: Medicaid Treatment Diagnosis: Low back and bilateral hip pain Current Subjective/complaints:: Patient reports the past couple the pain in his knees has ," kicked his a ".He reports the R hip /back pain is constant.When asked if he has attempted the exercises at home ,his response is , "not really ".Patient encouraged to try exercises at home to assist reducing his symptoms. Pain Assessment - Pain Description Pain Location: back/hips Pain Description: Dull, Aching, Chronic Current Pain Intensity: 6-7/10 - Treatment Modality: Electrical Stim Unattended Parameters/Method Applied: 20 mins. high volt ,channel 1 @ 280 pv,channel 2 @ 205 pv. Patient Position: Left Sidelying - Heat/Cryotherapy Treatment: Hot Pack (concurrent with e-stim) Interventions - Exercise/Activities/Manual Therapy Exercises/Activities: 25 mins. total,beginning with pelvic tilts.SKTC in short ROM,hams.stretch,lower trunk rotation.Recommended to do 2-3 x/day as tolerated.10 mins.Patient education for positioning and difference in flexion and extension for pain relief. Total minutes of Exercise: 35 Manual Therapy: NA HOME EXERCISE PROGRAM: pelvic tilts,SKTC,hamstring stretches,lower trunk rotation. - Charges Timed Code Treatment Minutes: 35 Total Treatment Time: 55 Procedures billed for this date of service:: hp,e-stim,ex ,ther. act. Assessment: Patient continues to guard each exercise,except LTR today.He reports his pain is constasnt ,gets about one hour of relief after PT session.He is not yet compliant to doing HEP,encouraged to try them,even in a shorter ROM if necessary. Patient Education: Education of diagnosis, Body/Joint mechanics, Home Exercise Program, Home Safety, Activity Modification, Education of Plan of Care Patient demonstrates compliance with HEP?: No (try in pain free ROM) Short Term Goals Goal #1: Patient independent and compliant with HEP. Goal to be met by: 06/27/18 Progress towards Goal:: No Change Goal #2: Patient able to tolerate 15 mins of exercises in department. Goal to be met by: 06/27/18 Progress towards Goal:: Progressing (15 -20 mins. ,but resists each movement , limiting the assessment of progress) Goal #3: Muscle tone in lumbar paraspinals decreased to minimal Goal to be met by: 06/27/18 Goal #4: Pt to maintain normal resting sitting posture for 10 mins in department. Goal to be met by: 06/27/18 [facility] Goals Goal #1: Pt knows HEP and to continue ex's to maintain functional level at D/C. Goal to be met by: 07/28/18 Goal #2: Score on Oswestry LBP scale improved to 54. Goal to be met by: 07/28/18 Goal #3: Pt able to amb. community distances with min. back pain & min. gt dev. Goal to be met by: 07/28/18 Goal #4: Lumbar AROM WFL's to perform ADL's with minimal to no difficulty. Goal to be met by: 07/28/18 Plan Dates of [facility] Goals: 07/28/18 Expiration date of current Insurance Approval:: pending PLAN: Cont. skilled PT to reduce/eliminate LBP/hip pain
--- NOTE | 2018-06-27 09:12 | RS.OPPTDN ---
Subjective Date of Note: 06/27/18 Visit #: 4 Number of visits approved by Insurance: pending Date of Evaluation: 06/12/18 Payer Source: Medicaid Treatment Diagnosis: Low back and bilateral hip pain Current Subjective/complaints:: Patient enters clinic ,and states,"I am not doing the stretches this AM,because I am having a terrible day ".Discussed with patient that the modalities only will not be effective based upon the symptoms he reports ,and we will attempt gentle stretches and if he cannot tolerate them, we will not do exercises today.He reports he is doing the exercises at home. Pain Assessment - Pain Description Pain Location: lumbar/R hip Pain Description: Tightness, Radiating, Sharp, Dull, Aching, Chronic Current Pain Intensity: 10/31 - Treatment Modality: Electrical Stim Unattended Parameters/Method Applied: 20 mins. high volt,channel 1 @ 250pv,channel 2 @ 220pv Patient Position: Left Sidelying - Heat/Cryotherapy Treatment: Hot Pack (concurrent with e-stim) Interventions - Exercise/Activities/Manual Therapy Exercises/Activities: 20 mins. total,beginning with abbreviated exercise session of pelvic tilt,SKTC,R piriformis stretch,LTR.Discussed pain control methods of iceor heat ,educated on positioning and gravity - assisted stretches of the hip and piriformis. Total minutes of Exercise: 20 Manual Therapy: NA Total minutes of Manual Therapy: 0 HOME EXERCISE PROGRAM: pelvic tilts,SKTC,hamstring stretches,lower trunk rotation. - Charges Timed Code Treatment Minutes: 20 Total Treatment Time: 40 Procedures billed for this date of service:: hp,e-stim,ther. act. Assessment: Tolerates exercises poorly today,constant muscle guarding ,tearful for a brief period after exercises todayDiscussed to use ice or heat for relief. Patient Education: Education of diagnosis, Body/Joint mechanics, Home Exercise Program, Home Safety, Activity Modification, Education of Plan of Care Patient demonstrates compliance with HEP?: Yes (reports trying them,but inconsistent) Short Term Goals Goal #1: Patient independent and compliant with HEP. Goal to be met by: 06/27/18 Progress towards Goal:: No Change Goal #2: Patient able to tolerate 15 mins of exercises in department. Goal to be met by: 06/27/18 Progress towards Goal:: No Change (15 -20 mins. ,but resists each movement , limiting the assessment of progress) Goal #3: Muscle tone in lumbar paraspinals decreased to minimal Goal to be met by: 06/27/18 Progress towards Goal:: No Change Goal #4: Pt to maintain normal resting sitting posture for 10 mins in department. Goal to be met by: 06/27/18 (na) [employer] [facility] Goals Goal #1: Pt knows HEP and to continue ex's to maintain functional level at D/C. Goal to be met by: 07/28/18 Goal #2: Score on Oswestry LBP scale improved to 54. Goal to be met by: 07/28/18 Goal #3: Pt able to amb. community distances with min. back pain & min. gt dev. Goal to be met by: 07/28/18 Goal #4: Lumbar AROM WFL's to perform ADL's with minimal to no difficulty. Goal to be met by: 07/28/18 Plan Dates of [facility] Goals: 07/28/18 Expiration date of current Insurance Approval:: pending PLAN: Cont. skilled PT to reduce/eliminate LBP.
--- NOTE | 2018-06-29 08:35 | RS.CXNS ---
Date of scheduled appointment: 06/29/18 Type: Cancel Reason for Cancel/NS: Wifes calls,patient is hurting too bad to come to therapy.
--- NOTE | 2018-07-03 13:09 | RS.QUICKDC ---
Discharge from PT Date of Discharge: 07/03/18 Number of Visits: 4 Reason for Discharge: Patient's at clinic for her therapy,but does inform this [employer] that Mr. Mejía will not return to therapy ,cannot tolerate it.
== END 2018-07-21 23:59 ==
PROVIDERS: ATTEND Orthopaedic Surgery
DX: M25.552 Pain in left hip (principal); M25.551 Pain in right hip; M54.5 Low back pain